=== PATIENT | male | born 1945 | race Hispanic/Latino ===

== ENCOUNTER 2019-01-07 09:33 | Day surgery (SDC) | payer MEDICARE, OTHER ==
[~2019-01-07] VITALS: Ht 180.3 cm; Wt 105.2 kg
[~2019-01-07 09:33] MED LIST: ASPI-555 PO; ATOR20TA65 PO; CLOP75TA32 PO; LISI-613 PO; METO25TA6 PO; SODIUM CHLORIDE 0.9% 1000ML 1,000 ML IV ONE; VITA100049 PO; VITA1CAP85 PO
[2019-01-07 10:35] VITALS: BP 114/57
[2019-01-07] MEDS ORDERED: PROPOFOL 10 MG/ML 20ML VIAL IV ONE (11:06)
[2019-01-07 12:15] VITALS: BP 91/49
[2019-01-07 12:20] VITALS: BP 97/42
[2019-01-07 12:26] VITALS: BP 98/46
[2019-01-07 12:35] VITALS: BP 105/66
== END 2019-01-07 12:49 | disposition home or self-care (01) ==
LOC: DAH 09:33 → ENDO 09:33
PROVIDERS: ATTEND Internal Medicine Gastroenterology
DX: R19.5 Other fecal abnormalities (principal); R12 Heartburn; D12.2 Benign neoplasm of ascending colon; K22.70 Barrett's esophagus without dysplasia; K44.9 Diaphragmatic hernia without obstruction or gangrene; K21.0 Gastro-esophageal reflux disease with esophagitis; K29.50 Unspecified chronic gastritis without bleeding; B96.81 Helicobacter pylori [H. pylori] as the cause of diseases classified elsewhere; I10 Essential (primary) hypertension; I25.10 Atherosclerotic heart disease of native coronary artery without angina pectoris; E78.5 Hyperlipidemia, unspecified; I25.2 Old myocardial infarction; Z79.899 Other long term (current) drug therapy; Z79.82 Long term (current) use of aspirin; Z98.890 Other specified postprocedural states; Z95.818 Presence of other cardiac implants and grafts; Z87.891 Personal history of nicotine dependence; Z82.49 Family history of ischemic heart disease and other diseases of the circulatory system
CPT/HCPCS: 43239; 45380; 88305; A4215; A4221; A4222; A4223; A4606; A4620; A4663; J2704; J7030